=== PATIENT | female | born 1940 | race Caucasian/White ===

== ENCOUNTER → 2020-12-01 | Outpatient (CLI) | payer MEDICARE, OTHER ==
[~2020-12-01] MED LIST: ASPIR 8181 MG PO; ELIQUIS 2.5 MG2.5 MG PO; FENOFIBRATE134 MG PO; FISH OIL CONC1000 MG PO; FOSAMAX70 MG PO; HYDROCODON-ACE1 EAC4 PO; JENTADUETO 2.51 EACH PO; METFORMIN HCL500 MG PO; MOBIC7.5 MG PO; PIOGLITAZONE HC30 MG PO; ROPINIROLE HCL2 MG PO; SIMVASTATIN20 MG PO; SYNTHROID50 MCG PO; TOPROL XL25 MG PO; TYLENOL EXTRA500 MG PO; VITAMIN D250 MCG PO; ZESTRIL 40 MG T40 MG PO
[2020-12-01 10:59] LABS: HEMOGLOBIN 12.2 gm/dl (12.3-15.3); RED BLOOD COUNT 3.76 M/UL (4.00-5.10); WHITE BLOOD COUNT 9.3 K/UL (4.5-11.0)
[2020-12-01 11:13] LABS: BUN/CREATININE RATIO 28 (0-10)
== END ==
LOC: OPSV2 10:19
PROVIDERS: Orthopaedic Surgery
DX: Z01.812 Encounter for preprocedural laboratory examination (principal); M17.12 Unilateral primary osteoarthritis, left knee; E11.9 Type 2 diabetes mellitus without complications; I10 Essential (primary) hypertension
CPT/HCPCS: 36415; 80048; 81001; 83036; 85025; 87081

== ENCOUNTER → 2020-12-11 | Outpatient (CLI) | payer MEDICARE, OTHER ==
[2020-12-11 13:31] LABS: BUN/CREATININE RATIO 27 (0-10)
== END ==
LOC: LAB 12:35
PROVIDERS: Orthopaedic Surgery
DX: Z01.812 Encounter for preprocedural laboratory examination (principal); M17.12 Unilateral primary osteoarthritis, left knee; I10 Essential (primary) hypertension; E11.9 Type 2 diabetes mellitus without complications
CPT/HCPCS: 80048; 86850; 86900; 86901

== ENCOUNTER 2020-12-12 06:11 | Day surgery (SDC) | payer MEDICARE, OTHER ==
[~2020-12-12] VITALS: Ht 162.6 cm; Wt 65.8 kg
[~2020-12-12 06:11] MED LIST changes: -ELIQUIS 2.5 MG2.5 MG PO
[2020-12-12] MEDS ORDERED: HYDROCODON-ACE1 EAC4 PO (10:49)
[2020-12-13 05:25] LABS: HEMOGLOBIN 11.1 gm/dl (12.3-15.3); RED BLOOD COUNT 3.43 M/UL (4.00-5.10); WHITE BLOOD COUNT 13.5 K/UL (4.5-11.0)
[2020-12-13 05:46] LABS: BUN/CREATININE RATIO 20 (0-10)
[2020-12-13] MEDS ORDERED: ELIQUIS 2.5 MG2.5 MG PO (09:29)
== END 2020-12-13 14:23 | disposition home health service (06) ==
LOC: OR 06:11 → M/S 13:54 → OR 12-13 14:23
PROVIDERS: Orthopaedic Surgery
DX: M17.12 Unilateral primary osteoarthritis, left knee (principal); M21.162 Varus deformity, not elsewhere classified, left knee; E78.5 Hyperlipidemia, unspecified; K21.9 Gastro-esophageal reflux disease without esophagitis; N18.9 Chronic kidney disease, unspecified; I12.9 Hypertensive chronic kidney disease with stage 1 through stage 4 chronic kidney disease, or unspecified chronic kidney disease; Z88.5 Allergy status to narcotic agent; Z88.8 Allergy status to other drugs, medicaments and biological substances; E11.22 Type 2 diabetes mellitus with diabetic chronic kidney disease; E03.9 Hypothyroidism, unspecified; Z79.84 Long term (current) use of oral hypoglycemic drugs; Z79.82 Long term (current) use of aspirin; I25.2 Old myocardial infarction; I25.10 Atherosclerotic heart disease of native coronary artery without angina pectoris; F32.9 Major depressive disorder, single episode, unspecified; G89.29 Other chronic pain
CPT/HCPCS: 36415; 73560; 80048; 82962; 85025; 97110-GP-CQ; 97116-GP-CQ; 97161; 97166; 97535; C1776; J0592; J0690; J1100; J2270; J2400; J2405; J2704; J2795; J3370; J7030; J7120

== ENCOUNTER → 2021-04-17 | Outpatient (CLI) | payer OTHER, MEDICARE ==
[~2021-04-17] VITALS: Ht 162.6 cm; Wt 63.5 kg
[~2021-04-17] MED LIST changes: +ELIQUIS 2.5 MG2.5 MG PO
== END ==
LOC: OPSV 10:13
DX: M81.0 Age-related osteoporosis without current pathological fracture (principal)
CPT/HCPCS: 96372

== ENCOUNTER → 2021-08-29 | Outpatient (CLI) | payer MEDICARE, OTHER | LOC: EXRD 09:12 | DX: M81.0 Age-related osteoporosis without current pathological fracture (principal) | CPT/HCPCS: 77080 ==

== ENCOUNTER → 2021-09-04 | Outpatient (CLI) | payer MEDICARE, OTHER | LOC: KOH-I 15:43 | DX: M25.512 Pain in left shoulder (principal); M51.04 Intervertebral disc disorders with myelopathy, thoracic region; M79.622 Pain in left upper arm; M47.814 Spondylosis without myelopathy or radiculopathy, thoracic region | CPT/HCPCS: 72070; 73030; 73060 ==

== ENCOUNTER → 2021-09-11 | Outpatient (CLI) | payer MEDICARE, OTHER | LOC: KOH-I 14:03 | DX: M54.89 Other dorsalgia (principal); M51.36 Other intervertebral disc degeneration, lumbar region; M43.16 Spondylolisthesis, lumbar region; Z79.899 Other long term (current) drug therapy | CPT/HCPCS: 72100 ==

== ENCOUNTER → 2021-12-06 | Outpatient (CLI) | payer MEDICARE, OTHER | LOC: US 11-30 08:30 → KOH-I 10:22 | DX: R10.11 Right upper quadrant pain (principal); R10.12 Left upper quadrant pain; R11.0 Nausea; N28.1 Cyst of kidney, acquired | CPT/HCPCS: 76700 ==